=== PATIENT | female | born 1980 | race Caucasian/White ===

== ENCOUNTER 2022-10-14 08:35 | Day surgery (SDC) | payer BC, SELFPAY ==
[2022-10-14] VITALS (17 sets, daily range): BP systolic 72–127; BP diastolic 49–95; PULSE 46–94; RESP 16–20; TEMP 36.1–36.6; O2SAT 94–100; BMI 39.6
--- NOTE | 2022-10-14 08:28 | W.ANESCHARGE ---
Anesthesia Charges Start Date/Time Anesthesia Start Date: 10/14/22 Anesthesia Start Time: 10:07 Stop Date/Time Anesthesia Stop Date: 10/14/22 Anesthesia Stop Time: 12:19
[2022-10-14] MEDS: SODIUM CHLORIDE 0.9 % (FLUSH) 10 ML SYRINGE IVF (09:00)
[2022-10-14] MEDS: LACTATED RINGERS 1000 ML 1,000 ML 100 ML IV (09:00)
[2022-10-14] MEDS: SCOPOLAMINE 1 MG/3 DAY PATCH 1 PATCH TRANSDERMA (09:45)
[2022-10-14] MEDS: MIDAZOLAM HCL 1 MG/ML inj IVP (09:52)
[2022-10-14] MEDS: fentaNYL 100 MCG/2 ML inj IVP (09:52)
--- NOTE | 2022-10-14 09:57 | W.PM.NB ---
Nerve Block Nerve Block Time Seen by Provider: 09:54 Date Seen: 10/14/22 Type of block requested by surgeon for post-operative analgesia: popliteal Side: right Time out performed: Yes Verification of patient name: Yes Verification of date of : Yes Site marking: site marked Name of person performing procedure: Anthony Continuous monitoring Was continuous monitoring of O2 sat, B/P, youth nutritional monitor, recorded every 15 minutes?: Yes Procedure Checklist: sterile prep, needles and gloves Ultrasound guided. Images saved: Yes Medications given in 5ml increments after negative aspiration: Ropivicaine %: 0.5 mL: 20 Needle gauge: 22 Patient tolerated procedure well: Yes Additional comments: Needle noted adjacent to nerve Block Charges Block Charge (with Pro Fee): Sciatic Nerve Use of Ultrasound Machine for Block: Yes- US Guidance/pain block
--- NOTE | 2022-10-14 10:03 | SUR.PREOP ---
TIME?OUT:?0950 PT/RN/MDA?VERIFICATION?OF?SURGICAL?SITE,?PROCEDURE,?AND?CONSENT OBTAINED?PRIOR?TO?INVASIVE?PROCEDURE.
[2022-10-14] MEDS: CEFAZOLIN 2 GM INJ IVP (10:17)
--- NOTE | 2022-10-14 10:32 | CRLHL7_ITS ---
For Patients: As a result of the Century Cures Act, medical imaging exams and procedure reports are released immediately into your electronic medical record. You may view this report before your referring provider. If you have questions, please contact your health care provider. Indication: PLANTAR FASCIA RELEASE Technique: One fluoroscopic image of the left ankle. Fluoroscopic time 45.1 seconds. IMPRESSION: Fluoroscopic guidance for surgery about the posterior superior calcaneus and possibly at the plantar aspect of the calcaneus. Dictated by Martin Brothers MD @ 10/14/2022 12:04:20 PM (Electronically Signed)
--- NOTE | 2022-10-14 12:22 | W.ANESCHARGE ---
Anesthesia Charges Start Date/Time Anesthesia Start Date: 10/14/22 Anesthesia Start Time: 10:07 Stop Date/Time Anesthesia Stop Date: 10/14/22 Anesthesia Stop Time: 12:19
--- NOTE | 2022-10-14 12:43 | PM.PROC ---
Procedure Note Date Seen: 10/14/22 Date of procedure: 10/14/22 Will [facility] bill your pro fee for this procedure?: No Procedure: Preoperative diagnosis: 1. Plantar fasciitis with heel spur right 2. 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 Plantar fasciitis with heel spur right 2. 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 Plantar fasciotomy with plantar heel spur resection right 2. Anisa deformity correction with calcaneal ostectomy right Procedure Description: Indication for surgery: Patient has failed conservative outpatient care for plantar fasciitis and ankle deformity with spurring. She has elected to have surgical care. I discussed the procedure, recovery, expectations and potential complications. These include but are not limited to: Poor wound healing, infection, potential need for future surgery, deep venous thrombosis, pulmonary embolism, continued pain, swelling, stiffness, nerve injury, possible . All questions answered and written consent obtained. Procedure: Patient brought the operating room and placed under general anesthesia. She had a preoperative popliteal block by Anesthesia. She was then rolled into a prone position on the operating room table in appropriately padded. She was then prepped and draped in a sterile fashion. Standard time-out protocol followed. The right limb was exsanguinated the thigh tourniquet inflated to 250 mm Hg. Linear incisions made over the medial calcaneus at the level of the bone spur and plantar fascia origin. Incision was made at the juncture of the plantar and medial skin superior to the plantar fat pad. Incision was carried through skin subcutaneous tissues. Plantar fascia was identified and soft tissue freed both dorsal and plantar to the fascia. Fascia was then released with a tenotomy scissors. Next the large spur was identified and soft tissues were freed superior and inferior. A rongeur was used to resect majority of the spur. The area was then remodeled with power bur. Wound was thoroughly irrigated normal sterile saline no tight bands of the fascia remained. C-arm confirmed adequate resection of the plantar heel spur. Wound was thoroughly irrigated normal sterile saline. Deeper subcutaneous tissues reapproximated with 4-0 Monocryl and the skin closed with 3-0 nylon. Linear incision was then made midline Achilles tendon the posterior calcaneus. Incision was carried down through skin subcutaneous tissues. Paratenon was identified and incised. The Achilles tendon was then split directly in half with a scalpel starting at the angles deformity and extending distal. The mediolateral slips were reflected off the calcaneus distally. Using a rongeur the bone spur off the Achilles insertion was resected. sagittal saw was then used remove the posterior superior bony enlargement. Power rasp was used to remodel the posterior calcaneus. Thorough irrigation with normal sterile saline performed. C-arm images confirmed excellent resection of the prominent bone and spurring. SwiveLock anchor placed in the posterior superior calcaneus on the medial aspect and 1 on the lateral aspect. FiberTape was brought through the medial slip of the Achilles from the medial anchor and through the lateral slip from the lateral anchor. Fiber tape was tied down increasing the Achilles slips back onto the calcaneus. The tendon split was repaired with 3-0 Vicryl. I then brought 1 FiberTape from each anchor together and we inserted a more distal SwiveLock anchor medially to further compress the tendon to the bone. The same technique was done on a laterally placed distal SwiveLock anchor bring in the other 2 suture ends into the calcaneus. Wound was thoroughly irrigated normal sterile saline. With the knee straight she had 10? dorsiflexion and thus no gastroc lengthening was necessary. Paratenon was repaired with 3-0 Vicryl. Subcutaneous tissues brought together with 4-0 Monocryl and the skin closed with 4-0 Prolene. Sterile dressing was applied. Tourniquet was released and normal capillary fill time returned to all digits. She was placed in a well-padded below-knee posterior splint in gravity dorsiflexion. She was transferred from OR to PACU vital signs stable and vascular status intact. She is given both written and verbal postop instructions. She is to be nonweightbearing. She is given oxycodone for pain. She will follow-up in 2-3 days in clinic. Anesthesia: GETA and regional Surgeon: Gustavo Pickett DPM Estimated blood loss (mL): 5 Condition: stable Disposition: PACU
== END 2022-10-14 14:18 | disposition home or self-care (01) ==
PROVIDERS: PCP Nurse Practitioner Family; Visit Provider Podiatrist
PROC: (CPT 27650; principal; 2022-10-14 10:00)
DX: M72.2 Plantar fascial fibromatosis (principal); M76.61 Achilles tendinitis, right leg; M77.31 Calcaneal spur, right foot; M21.861 Other specified acquired deformities of right lower leg; G89.18 Other acute postprocedural pain
CPT/HCPCS: 28119; 28118; 01474; 64445; 73620; 76942; 97116; 97161; A4580; A9270; C1713; J0330; J0690; J1100; J2250; J2370; J2405; J2704; J2795; J3010; J7120